=== PATIENT | female | born 1990 | race Caucasian/White ===

== ENCOUNTER → 2018-06-10 11:38 | Outpatient (CLI) | payer MEDICAID, SELFPAY ==
[2018-06-10 11:41] LABS: Microscopic, Urine URINE MICROSCOPIC (MICROSCOPIC)
[2018-06-10 11:53] LABS: Basophils % 0.5 % (0.1-2.0); Eosinophils # 0.1 K/mm3 (0.0-0.4); Eosinophils % 1.7 % (0.1-12.0); Hematocrit 42.4 % (37.0-47.0); Lymphocytes % 38.5 % (10-50); Mean Corpuscular HGB Conc 35.3 g/dL (31.8-35.4); Mean Corpuscular Hemoglobin 31.8 pg (27.0-31.2); Mean Corpuscular Volume 90.2 fl (81-99); Mean Platelet Volume 7.9 fl (7.4-10.4); Monocytes # 0.5 K/mm3 (0.1-1.0); Monocytes % 6.8 % (1.7-9.3); Neutrophils # 4.1 K/mm3 (1.8-7.8); Neutrophils % 52.5 % (37.0-80.0); Platelet Count 274 K/mm3 (142-424); Red Cell Distribution Width 12.7 % (11.5-17.5); White Blood Count 7.8 K/mm3 (4.8-10.8)
[2018-06-10 11:58] LABS: Appearance,Urine CLEAR (Clear); Bilirubin,Urine Negative (Negative); Blood, Urine 3+ (Negative); Color,Urine YELLOW (Yellow); Glucose,Urine (UA) Negative (Negative); Ketones,Urine Negative (Negative); Leukocyte Esterase,Urine Negative (Negative); Nitrate,Urine Negative (Negative); Protein,Urine Negative (Negative); Specific Gravity, Urine 1.025 (1.005-1.030); Urobilinogen,Urine 0.2 EU/dl (0.2)
[2018-06-10 12:16] LABS: Bacteria,Urine 1+ /lpf; RBC,Urine 50-100 #/hpf (0-3)
[2018-06-10 13:14] LABS: Alanine Aminotransferase 24 U/L (12-78); Albumin Level 4.2 gm/dL (3.4-5.0); Albumin/Globulin Ratio 1.2 (1.1-1.8); Alkaline Phosphatase 58 U/L (46-116); Anion Gap 14.4 mEq/L (5-15); Aspartate Amino Transferase 17 U/L (15-37); Bilirubin,Total 0.5 mg/dL (0.2-1.0); Blood Urea Nitrogen 10 mg/dL (7-18); Calcium 9.6 mg/dL (8.5-10.1); Carbon Dioxide 28 mmol/L (21.0-32.0); Chloride 101 mmol/L (98-107); Creatinine,Serum 0.74 mg/dL (0.55-1.02); Estimated Glomerular Filt Rate 93 ml/min (>60); GFR (African American) 112 ML/MIN (>60); Globulin 3.6 gm/dl (1.3-3.2); Glucose 82 mg/dL (74-106); Potassium 4.4 mmoL/L (3.5-5.1); Sodium 139 mmol/L (136-145); Total Protein,Serum 7.8 gm/dL (6.4-8.2)
[2018-06-10 14:06] LABS: HCG Qualitative, Serum Negative (Negative)
== END ==
PROVIDERS: Visit Provider Obstetrics & Gynecology
DX: Z01.818 Encounter for other preprocedural examination (principal); N80.9 Endometriosis, unspecified; N97.9 Female infertility, unspecified
CPT/HCPCS: 36415; 80053; 81001; 84703; 85025

== ENCOUNTER → 2018-07-08 11:35 | Outpatient (CLI) | payer MEDICAID, SELFPAY ==
[2018-07-08 11:38] LABS: Microscopic, Urine URINE MICROSCOPIC (MICROSCOPIC)
[2018-07-08 12:00] LABS: Basophils % 0.5 % (0.1-2.0); Eosinophils # 0.1 K/mm3 (0.0-0.4); Hematocrit 45.9 % (37.0-47.0); Hemoglobin 15.1 g/dL (12.2-16.2); Lymphocytes # 3.3 K/mm3 (0.7-4.5); Lymphocytes % 41.8 % (10-50); Mean Corpuscular HGB Conc 32.8 g/dL (31.8-35.4); Mean Corpuscular Hemoglobin 30.7 pg (27.0-31.2); Mean Corpuscular Volume 93.5 fl (81-99); Mean Platelet Volume 8.1 fl (7.4-10.4); Monocytes # 0.4 K/mm3 (0.1-1.0); Monocytes % 4.9 % (1.7-9.3); Neutrophils # 4.1 K/mm3 (1.8-7.8); Neutrophils % 51.8 % (37.0-80.0); Platelet Count 258 K/mm3 (142-424); Red Blood Count 4.91 M/mm3 (4.20-5.40); Red Cell Distribution Width 12.9 % (11.5-17.5); White Blood Count 7.8 K/mm3 (4.8-10.8)
[2018-07-08 12:13] LABS: Appearance,Urine CLEAR (Clear); Bilirubin,Urine Negative (Negative); Blood, Urine 1+ (Negative); Color,Urine YELLOW (Yellow); Glucose,Urine (UA) Negative (Negative); Ketones,Urine Negative (Negative); Leukocyte Esterase,Urine Negative (Negative); Nitrate,Urine Negative (Negative); Protein,Urine Negative (Negative); Specific Gravity, Urine 1.015 (1.005-1.030); Urobilinogen,Urine 0.2 EU/dl (0.2)
[2018-07-08 13:18] LABS: Bacteria,Urine Trace /lpf; Mucus,Urine 2+ /lpf; WBC,Urine Occasional #/hpf (0-3)
[2018-07-08 13:28] LABS: Alanine Aminotransferase 22 U/L (12-78); Albumin Level 4.2 gm/dL (3.4-5.0); Albumin/Globulin Ratio 1.2 (1.1-1.8); Alkaline Phosphatase 59 U/L (46-116); Anion Gap 11.7 mEq/L (5-15); Aspartate Amino Transferase 9 U/L (15-37); Bilirubin,Total 0.4 mg/dL (0.2-1.0); Blood Urea Nitrogen 9 mg/dL (7-18); Calcium 8.9 mg/dL (8.5-10.1); Carbon Dioxide 29 mmol/L (21.0-32.0); Chloride 103 mmol/L (98-107); Creatinine,Serum 0.67 mg/dL (0.55-1.02); Estimated Glomerular Filt Rate 104 ml/min (>60); GFR (African American) 126 ML/MIN (>60); Globulin 3.5 gm/dl (1.3-3.2); Glucose 90 mg/dL (74-106); Potassium 3.7 mmoL/L (3.5-5.1); Sodium 140 mmol/L (136-145); Total Protein,Serum 7.7 gm/dL (6.4-8.2)
== END ==
PROVIDERS: Visit Provider Obstetrics & Gynecology
DX: Z01.818 Encounter for other preprocedural examination (principal); N80.0 Endometriosis of uterus; N73.1 Chronic parametritis and pelvic cellulitis; N70.11 Chronic salpingitis
CPT/HCPCS: 36415; 80053; 81001; 85025

== ENCOUNTER 2018-07-14 06:19 | Inpatient (IN) | payer MEDICAID, SELFPAY ==
[2018-07-13 08:27] VITALS: BMI 24.3
[2018-07-14] VITALS (27 sets, daily range): BP systolic 106–152; BP diastolic 43–94; PULSE 55–90; RESP 13–24; TEMP 36.3–43; O2SAT 95–100
[2018-07-14 06:32] LABS: Urine Pregnancy, HCG Qual. Negative (Negative)
--- NOTE | 2018-07-14 06:50 | P.PN_ITS ---
[facility] Anesthesia Checklist - Structural Data Admitted From: Home Planned Operative Procedure/s: exp lap Consent for Planned Operative Procedure(s) Verified: Yes - Airway Assessment C-Spine Mobility Assessed: Yes TMJ Mobility Assessed: Yes Dentition: Good Dentition - Neurological Assessment Level of Consciousness: Awake, Alert, Appropriate - Anesthesia Plan Anesthesia Risk discussed: Yes Anesthesia Plan: Verified ASA Class: II Anesthesia Type: General [facility] History I have reviewed the patient's past medical history: Yes Medical History: Reports:: Seizures Denies:: Cancer, Diabetes Mellitus Type 1, Diabetes Mellitus Type 2, Internal Pacemaker, MRSA *Have you ever received a pneumonia vaccine?: No *Have you received a flu vaccine this season?: No Other Medical History: Denies: Blood Transfusion Reaction Other Surgeries: No: Pacemaker Amputation: No Fractures: No - *Social History Educational Level: Completed High School Smoking Status: Current every day smoker Tobacco Type: cigarettes # Packs/Day (cigarettes): 1 Alcohol Intake: never Alcohol Intake Frequency:: other Substance Use Type: denies use *Occupational Status:: employed Housing: house Household Members: significant other *Travel in the last 8 weeks: None - Psychiatric History Expresses thoughts of harming self/others: None Suicide Plan Description: No Plan Family Hx:: Heart Attack 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
--- NOTE | 2018-07-14 08:59 | HMH.OPNOTE ---
Date of procedure: 07/28/18 Pre-op Diagnosis:: 1. Endometriosis. 2. Pelvic adhesions. 3. Bilateral hydrosalpinges. Post-op Diagnosis:: 1. Endometriosis. 2. Extensive pelvic adhesions. 3. Bilateral hydrosalpinges. Procedure performed:: 1. Exploratory laparotomy. 2. Extensive pelvic adhesiolysis. 3. Left salpingectomy. 4. Right tuboplasty. Surgeon:: Marin Henry MD Rn Family Practice(s):: Dr. Mcclendon MANUFACTURING ASSOCIATE:: Shiva Barrios Anesthesia: GETA Estimated blood loss (mL): 100 Operative findings:: 1. Extensive pelvic adhesions. 2. Bilateral hydrosalpinges. Condition: stable Disposition: PACU Specimens:: Left fallopian tube. Complications:: None
--- NOTE | 2018-07-14 09:02 | HMH.OPNOTE ---
Date of procedure: 07/14/18 Pre-op Diagnosis:: 1. Endometriosis. 2. Extensive pelvic adhesions. 3. Bilateral hydrosalpinges. Post-op Diagnosis:: 1. Endometriosis. 2. Extensive pelvic adhesions. 3. Bilateral hydrosalpinges. Procedure performed:: 1. Exploratory laparotomy. 2. Extensive lysis of adhesions. 3. Left salpingectomy. 4. Right tuboplasty. Surgeon:: Marin Henry MD Field Captain(s):: Dr. Mcclendon. BASIN TENDER:: Shiva Barrios Anesthesia: GETA Estimated blood loss (mL): 100 Operative findings:: 1. Extensive pelvic adhesions. 2. Bilateral hydrosalpinges. Operative note:: After the patient was prepped and draped in usual fashion and general anesthesia was administered, a weighted speculum was placed within the posterior fourchette of the vagina, and the anterior lip of the cervix was grasped with a single-tooth tenaculum. The cervix was easily dilated to #20 Hegar dilators, and a HUMI uterine elevator was inserted into the endocervix, and the bulb inflated for easy uterine manipulation during the laparoscopy. A syringe of methylene blue dye was placed at the end of the HUMI. After appropriate regloving, a low Pfannenstiel incision was made across the midline. The fat and fascia was in usual fashion, bleeders being clamped and coagulated along the way. The peritoneum was entered with Metzenbaum scissors, and extended above and below. The bowel was packed away and a self-retaining Delfin retractor with bladder blade was placed. The uterus was of normal size and configuration. Each ovary appeared normal. On the left side, the tube was convoluted and adherent to the ovary and the adherent to the pelvic sidewall. Using a harmonic scalpel and a [place] clamp, the mesosalpinx was crossclamped and cut, thus removing the left tube. There was no undue bleeding, although running unlocked suture of 3-0 Vicryl was placed for hemostasis. Methylene blue dye was then infused and this appeared to fill the proximal portion of the right fallopian tube. Resistance was met. The right tube was also convoluted upon itself, and the fimbria were buried. Using a #11 blade, the distal portion of the tube was open. Chromopertubation was then carried out with minimal flow of dye through the right tube. Considerable letter was made to unblock the tube and straighten it, but the efforts were only partially successful, even with circumcision probing. Consideration was even given to removing the right tube, but this had not been discussed in detail with the patient, and so the decision was made to leave it in situ. The serosa of the tube was oversewn with 3-0 Vicryl for hemostasis. Irrigation was carried out and Carl was sprinkled over the surgical area for further hemostasis. The appendix was retrocecal and was not addressed. The peritoneum was grasped with 3 Janna clamps, and closed with a running semi-lock suture of 0 Vicryl. The muscle was approximated with a running unlocked suture of 0 Vicryl. The fascia was closed with a running locked suture of #1 Vicryl. The subcutaneous fat and Maxwell's fascia were closed with a running unlocked suture of 2-0 Vicryl. The skin was closed with a subcuticular suture of 3-0 Vicryl, and appropriately dressed. The urine was clear in the Irwin catheter. The sponge and needle counts correct. Estimated blood loss was 100 cc. The patient tolerated the procedure well, was taken to PACU in excellent condition. She will be admitted postoperatively. Condition: stable Disposition: PACU Specimens:: Left fallopian tube. Complications:: None.
--- NOTE | 2018-07-14 09:02 | HMH.ANESI ---
[facility] Anesthesia Record Part I Intake, IV Amount: 550 Estimated blood loss (mL): 100 Urine output (mL): 150 Blood Products used (#): none Blood Pressure: 118/59 SaO2: 99 Pulse Rate: 55 Respiratory Rate: 18 Temperature: 97.6 F Patient is:: Drowsy, Stable Stable to PACU at:: 08:56
--- NOTE | 2018-07-14 09:05 | P.PN_ITS ---
[facility] Anesthesia Record Part II Discharge Time: 09:26 Destination: Obstetric Gynecology Dept PACU nurse assessment reviewed?: Yes Patient Condition:: Good Anesthesia Complications:: None Swallowing reflex intact?: Yes Cyanosis?: No
--- NOTE | 2018-07-14 09:10 | P.OP_ITS ---
Date of procedure: 07/14/18 Pre-op Diagnosis:: 1. Endometriosis. 2. Extensive pelvic adhesions. 3. Bilateral hydrosalpinges. Post-op Diagnosis:: 1. Endometriosis. 2. Extensive pelvic adhesions. 3. Bilateral hydrosalpinges. Procedure performed:: 1. Exploratory laparotomy. 2. Extensive lysis of adhesions. 3. Left salpingectomy. 4. Right tuboplasty. Surgeon:: Marin Henry MD Straight Cutter(s):: Dr. Mcclendon. BUILDING ENERGY RETROFIT TECHNICIAN:: Shiva Barrios Anesthesia: GETA Estimated blood loss (mL): 100 Operative findings:: 1. Extensive pelvic adhesions. 2. Bilateral hydrosalpinges. Operative note:: After the patient was prepped and draped in usual fashion and general anesthesia was administered, a weighted speculum was placed within the posterior fourchette of the vagina, and the anterior lip of the cervix was grasped with a single- tooth tenaculum. The cervix was easily dilated to #20 Hegar dilators, and a HUMI uterine elevator was inserted into the endocervix, and the bulb inflated for easy uterine manipulation during the laparoscopy. A syringe of methylene blue dye was placed at the end of the HUMI. After appropriate regloving, a low Pfannenstiel incision was made across the midline. The fat and fascia was in usual fashion, bleeders being clamped and coagulated along the way. The peritoneum was entered with Metzenbaum scissors, and extended above and below. The bowel was packed away and a self-retaining [place] retractor with bladder blade was placed. The uterus was of normal size and configuration. Each ovary appeared normal. On the left side, the tube was convoluted and adherent to the ovary and the adherent to the pelvic sidewall. Using a harmonic scalpel and a [place] clamp, the mesosalpinx was crossclamped and cut, thus removing the left tube. There was no undue bleeding, although running unlocked suture of 3-0 Vicryl was placed for hemostasis. Methylene blue dye was then infused and this appeared to fill the proximal portion of the right fallopian tube. Resistance was met. The right tube was also convoluted upon itself, and the fimbria were buried. Using a #11 blade, the distal portion of the tube was open. Chromopertubation was then carried out with minimal flow of dye through the right tube. Considerable letter was made to unblock the tube and straighten it, but the efforts were only partially successful, even with circumcision probing. Consideration was even given to removing the right tube, but this had not been discussed in detail with the patient, and so the decision was made to leave it in situ. The serosa of the tube was oversewn with 3-0 Vicryl for hemostasis. Irrigation was carried out and Carl was sprinkled over the surg ical area for further hemostasis. The appendix was retrocecal and was not addressed. The peritoneum was grasped with 3 Janna clamps, and closed with a running semi-lock suture of 0 Vicryl. The muscle was approximated with a running unlocked suture of 0 Vicryl. The fascia was closed with a running locked suture of #1 Vicryl. The subcutaneous fat and Maxwell's fascia were closed with a running unlocked suture of 2-0 Vicryl. The skin was closed with a subcuticular suture of 3-0 Vicryl, and appropriately dressed. The urine was clear in the Irwin catheter. The sponge and needle counts correct. Estimated blood loss was 100 cc. The patient tolerated the procedure well, was taken to PACU in excellent condition. She will be admitted postoperatively. Condition: stable Disposition: PACU Specimens:: Left fallopian tube. Complications:: None.
[2018-07-14 09:15] LABS: Microscopic,Cath URINE MICROSCOPIC (MICROSCOPIC)
[2018-07-14 09:17] LABS: Appearance,Urine/Cath CLEAR (Clear); Bilirubin,Cath Negative (Negative); Blood, Urine/Cath 1+ (Negative); Color,Urine/Cath YELLOW (Yellow); Glucose,Urine/Cath (UA) Negative (Negative); Ketones,Urine/Cath Negative (Negative); Leukocyte Esterase,Cath Negative (Negative); Nitrate,Cath Negative (Negative); Protein,Urine/Cath Negative (Negative); Specific Gravity, Urine/Cath <= 1.005 (1.005-1.030); Urobilinogen,Cath 0.2 EU/dl (0.2)
--- NOTE | 2018-07-14 09:22 | PC.NURSE ---
exp: 02/29/2020 lot: [id number]
[2018-07-14 09:23] LABS: Bacteria,Urine/Cath TRACE /lpf; RBC,Urine/Cath Occasional # /hpf (0-3)
[2018-07-14 10:01] LABS: Hematocrit 42.7 % (37.0-47.0); Hemoglobin 14.7 g/dL (12.2-16.2)
--- NOTE | 2018-07-14 10:25 | PC.NURSE ---
Pt to department at approximately 1000. Pt groaning and complaining that she is cold at this time, 2 warm blankets applied to pt and oral temp of 97.5 noted. Pt dozing off and on while RN at bedside. IPCS reapplied, VSS, bed locked and in it's lowest position with side rails up x2, call light within reach. F/C patent and draining clear, yellow urine at bedside. Visitor present. Pt sleeping soundly with resps even and unlabored as RN left the room at 1015.
--- NOTE | 2018-07-14 10:29 | HMH.PHAVTE ---
[facility] Pharmacy VTE Monitoring - Patient Demographics Admission date: 07/14/18 Report Date: 07/14/18 Time: 10:29 Allergies/Adverse Reactions: Patient Allergies Penicillins [PENICILLINS] Allergy (Severe, Verified 07/13/18 08:19) T-[id number]-[id number]/THROAT amoxicillin [From AMOXIL] Allergy (Intermediate, Verified 07/13/18 08:19) I-RASH acetaminophen [From TYLENOL-CODEINE #3] Allergy (Mild, Verified 07/13/18 08:19) VOMITS codeine [From TYLENOL-CODEINE #3] Allergy (Mild, Verified 07/13/18 08:19) VOMITS cephalexin [From KEFLEX] Allergy (Unknown, Verified 07/13/18 08:19) I-HIVES Height: 1.6 m Weight: 62.142 kg - VTE Risk Labs: VTE Related Lab Results Hgb 14.7 g/dL (12.2-16.2) 07/14/18 09:50 Hct 42.7 % (37.0-47.0) 07/14/18 09:50 - Prophylaxis VTE Prophylaxis Ordered?: Yes Types of VTE Prophylaxis: IPCS Thigh High Location of Applied Device: Bilateral Lower Extremeties - VTE Diagnosis Confirmed Treatment or plan recommended: Continue Current Treatment
--- NOTE | 2018-07-14 10:32 | HMH.PHAINT ---
MEDICATION RECONCILIATION COMPLETED ON PATIENT USING EXTERNAL FILL HISTORY FROM PHARMACY AND LIST FROM PHYSICIAN'S OFFICE. -SHEELA DAVISD
--- NOTE | 2018-07-14 13:32 | PC.NURSE ---
Report given to Pierce Hayes RN.
--- NOTE | 2018-07-14 13:39 | HMH.ACPN2 ---
Internal Medicine - PN: Subj *Date: 07/14/18 *Time: 13:39 Interval history: This is day of surgery. The patient is afebrile. Vital signs stable. Wound clean. Abdomen soft. Urine output good. She is anxious to have her Irwin removed and I will do so now. Surgery has been explained to the patient. Exam Vital signs and Labs for Last 24 Hours: Temp Pulse Resp BP Pulse Ox 98.1 F 62 16 113/77 97 07/14/18 13:00 07/14/18 13:00 07/14/18 13:00 07/14/18 13:00 07/14/18 13:00 Laboratory Results - last 24 hr 07/14/18 06:20: Urine HCG, Qual Negative 07/14/18 07:45: Urine Color Yellow, Urine Appearance Clear, Urine pH 7.0, Ur Specific [place] <= 1.005, Urine Protein Negative, Urine Glucose (UA) Negative, Urine Ketones Negative, Urine Blood 1+, Urine Nitrate Negative, Urine Bilirubin Negative, Urine Urobilinogen 0.2, Ur Leukocyte Esterase Negative, Urine RBC Occasional, Urine WBC None, Ur Squamous Epith Cells 3-5, Urine Bacteria Trace 07/14/18 09:50: Hgb 14.7, Hct 42.7 I & O for Last 24 hours: Intake & Output 07/12/18 07/13/18 07/14/18 07/15/18 11:59 11:59 11:59 11:59 Intake Total 550 / 550 Balance 550 / 550 Weight 137 lb
--- NOTE | 2018-07-14 14:27 | SUR.PHASEI ---
Dilaudid given on arrival to PACU for pain observed 10 of 10.
--- NOTE | 2018-07-14 15:45 | PC.NURSE ---
Indwelling catheter removed at this time. Urine blue/green in color r/t dye that was used during procedure.
--- NOTE | 2018-07-14 15:48 | PC.NURSE ---
Indwelling catheter removed at this time. Urine clear and green/blue in color r/t dye inserted during procedure. Pt ambulated to the BR at this time and sheets were changed. Medicated for pain 5/10 on numeral scale according to EMAR. Sitting on the side of the bed at this time. Denies any further needs at this time.
--- NOTE | 2018-07-14 18:16 | PC.NURSE ---
Pt medicated per EMAR r/t to pain rated 7/10 on verbal scale. Heating blanket applied to pt at request. Ambulated to the BR and back at this time. Pt was able to void at this time. Education on the IS at this time. Pt returned proper demonstration of use of IS at this time. Denies any further needs at this time.
--- NOTE | 2018-07-14 18:20 | PC.NURSE ---
Blood tinged urine noted from pt. Scant bleeding on pad. Pt was straining to use BR will reassess her bleeding in 30 min.
--- NOTE | 2018-07-14 18:58 | PC.NURSE ---
Bleeding in scant on sherry pad. Denies any further needs.
--- NOTE | 2018-07-14 19:06 | PC.NURSE ---
Report given to Yasmin Nuñez RN.
--- NOTE | 2018-07-14 23:21 | PC.NURSE ---
pt ambulating on unit at this time. no complaints voiced no distress noted will continue to monitor at this time
[2018-07-15] VITALS (8 sets, daily range): BP systolic 110–155; BP diastolic 70–95; PULSE 74–85; RESP 18; TEMP 36.6–36.9; O2SAT 96–100
--- NOTE | 2018-07-15 03:50 | PC.NURSE ---
pt has rested fairly well throughout shift. medicated for pain see emar. lungs remain clear heart rate regular, bs x 4 quads, pt has ambulated without difficulty, abdominal dresing to low transverse incision has small amount of serosangious drainage not changed since beginning of shift, scant amount of vaginal bleeding, urine remains a blueish green urine, good urinary output with total of 1600 ml total. no distress noted at this time will continue to monitor
--- NOTE | 2018-07-15 06:41 | PC.NURSE ---
pt up to shower at this time. ambulating in room without difficulty no distress noted at this time
[2018-07-15 07:07] LABS: Hematocrit 38.2 % (37.0-47.0)
--- NOTE | 2018-07-15 07:10 | PC.NURSE ---
Dr. Henry here to assess pt.
--- NOTE | 2018-07-15 07:15 | PC.NURSE ---
Pt taken a shower this morning. Dressing removed, incision cleaned, and new dressing C/D/I. Assessment performed at this time. Pt advanced to a soft diet and rates pain 7/10 on verbal scale. Denies any further needs at this time. Will continue to observe.
--- NOTE | 2018-07-15 07:20 | P.PN_ITS ---
Internal Medicine - PN: Subj *Date: 07/15/18 *Time: 07:20 Interval history: This is postop day #1. The patient is afebrile. Vital signs stable. Wound clean. Abdomen soft. Urine output good. Hemoglobin 14.7 g. She is ambulating and has good bowel sounds. I am going to advance her diet at this time. Exam Vital signs and Labs for Last 24 Hours: Temp Pulse Resp BP Pulse Ox 98.2 F 77 18 115/81 96 07/15/18 03:28 07/15/18 03:28 07/15/18 03:28 07/15/18 03:28 07/15/18 00:02 Laboratory Results - last 24 hr 07/14/18 07:45: Urine Color Yellow, Urine Appearance Clear, Urine pH 7.0, Ur Specific [place] <= 1.005, Urine Protein Negative, Urine Glucose (UA) Negative, Urine Ketones Negative, Urine Blood 1+, Urine Nitrate Negative, Urine Bilirubin Negative, Urine Urobilinogen 0.2, Ur Leukocyte Esterase Negative, Urine RBC Occasional, Urine WBC None, Ur Squamous Epith Cells 3-5, Urine Bacteria Trace 07/14/18 09:50: Hgb 14.7, Hct 42.7 I & O for Last 24 hours: Intake & Output 07/12/18 07/13/18 07/14/18 07/15/18 11:59 11:59 11:59 11:59 Intake Total 550 / 550 Output Total 2400 / 2400 Balance 550 / 550 -2400 / -2400 Weight 137 lb
[2018-07-15 07:36] LABS: Hemoglobin 13.2 g/dL (12.2-16.2)
--- NOTE | 2018-07-15 10:45 | PC.NURSE ---
Called Dr. Henry in regards to pain medication not being affective. New orders obtained at this time.
--- NOTE | 2018-07-15 12:00 | PC.NURSE ---
VS obtained at this time. Pt c/o gas pain. Incision dressing C/D/I. Denies any further needs at this time will continue to observe.
--- NOTE | 2018-07-15 16:24 | PC.NURSE ---
Reassessed at this time. VS stable. Denies any further needs. Call light is within reach and will continue to observe.
--- NOTE | 2018-07-15 18:46 | INFXCTL.NOTE ---
Report given to Roselia Jarrell RN.
[2018-07-16 00:20] VITALS: BP 149/85; PULSE 102; TEMP 36.8
[2018-07-16 05:20] VITALS: BP 114/75; PULSE 75; RESP 18; TEMP 36.8
[2018-07-16 08:00] VITALS: BP 134/97; PULSE 86; RESP 18; O2SAT 96
--- NOTE | 2018-07-16 08:46 | HMH.ACPN2 ---
Internal Medicine - PN: Subj *Date: 07/16/18 *Time: 08:46 Interval history: This is day #2. The patient is afebrile. Vital signs stable. Lochia normal. Perineum healing well. Uterine fundus has involuted well. Hemoglobin 13.7 g. She will be discharged today. Exam Vital signs and Labs for Last 24 Hours: Temp Pulse Resp BP Pulse Ox 98.3 F 86 18 134/97 H 96 07/16/18 05:20 07/16/18 08:00 07/16/18 08:00 07/16/18 08:00 07/16/18 08:00 I & O for Last 24 hours: Intake & Output 07/13/18 07/14/18 07/15/18 07/16/18 11:59 11:59 11:59 11:59 Intake Total 550 / 550 480 / 480 Output Total 2750 / 2750 600 / 600 Balance 550 / 550 -2750 / -2750 -120 / -120 Weight 137 lb
--- NOTE | 2018-07-16 08:48 | HMH.DCSUM ---
General - General Admission date:: 07/14/18 Discharge date: 07/16/18 (This 22-year-old 1, now para 1, Ab0 white female was admitted for induction at 39-3/7 weeks. She delivered vaginally, without complications. The baby was an 7/8, 7 pound 5 ounce, 20 inch female , born on 07/14/2020 at 1908. Baby is breast-feeding, and is done well. , the patient has done well. She is eating and ambulating, and has had a bowel movement. Her perineum is healing well. Her lochia is normal. Her uterine fundus is involuting well. Her blood type is O+. Her rubella titer is nonimmune, and she will be vaccinated prior to discharge. She is not a smoker. Her blood type is O+. She is given appropriate instructions as to diet, exercise, and perineal care, and she is to return to Dr. Mcclendon's office in 2 weeks for follow-up. ) Objective Vital signs: Temp Pulse Resp BP Pulse Ox 98.3 F 86 18 134/97 H 96 07/16/18 05:20 07/16/18 08:00 07/16/18 08:00 07/16/18 08:00 07/16/18 08:00 Discharge Plan - Patient Discharge Instructions - Follow up Plan Home Medications: Home Medications Medication Instructions Recorded Confirmed Type promethazine 25 mg tablet 25 mg PO Q6H PRN #20 tab 05/30/18 07/13/18 Rx Hydrocodone/Acetaminophen 1 each PO Q4-6H PRN 06/13/18 07/13/18 History [Hydrocodone-Acetamin 5-325 mg] Prescriptions/Medication Reconciliation: No Action promethazine 25 mg tablet 25 mg PO Q6H PRN #20 tab PRN Reason: nausea and vomiting Hydrocodone/Acetaminophen [Hydrocodone-Acetamin 5-325 mg] 1 each PO Q4-6H PRN PRN Reason: PAIN
--- NOTE | 2018-07-16 09:19 | HMH.DCSUM ---
General - General Admission date:: 07/14/18 Discharge date: 07/16/18 (This 27-year-old white female was admitted for definitive treatment of bilateral hydrosalpinges and extensive pelvic adhesions secondary to endometriosis. She is desirous of a future . On the date of admission, she was taken to the operating room, where, under general anesthesia, she underwent an exploratory laparotomy with extensive lysis of adhesions, left salpingectomy, and the right tuboplasty. The right tube was extremely convoluted and the fimbria were not completely opened. Chromopertubation was carried out with problematic results. Her appendix remains in situ. Postoperatively, the patient is doing well. She is eating and ambulating, and passing flatus. Her hemoglobin is 13.2 g. She is discharged home on the second postoperative day on Lortab 5/325 (#30), 1 p.o. every 6 hours as needed pain. She is to use Tylenol and Motrin intermittently as needed. She is given appropriate instructions as to diet, exercise, and wound care, and she is to return to the office in 2 weeks for follow-up.) Objective Vital signs: Temp Pulse Resp BP Pulse Ox 98.3 F 86 18 134/97 H 96 07/16/18 05:20 07/16/18 08:00 07/16/18 08:00 07/16/18 08:00 07/16/18 08:00 Discharge Plan - Patient Discharge Instructions DIET: advance to your usual diet - Follow up Plan Disposition: Home, Self-Care Prescriptions/Medication Reconciliation: Discontinued promethazine 25 mg tablet 25 mg PO Q6H PRN #20 tab PRN Reason: nausea and vomiting Hydrocodone/Acetaminophen [Hydrocodone-Acetamin 5-325 mg] 1 each PO Q4-6H PRN PRN Reason: PAIN
--- NOTE | 2018-07-16 09:57 | PC.NURSE ---
PATIENT A&O X4, LUNGS CLEAR, PULSES EQUAL, ROOF TRUSS DETAILER EQUAL. INCISION ON LOWER ABDOMEN, DRESSING CLEAN AND DRY. ATE 25% OF BREAKFAST, DR. HAN IN ROOM AND REMOVED DRESSING, BRUISING NOTED ALONG UPPER AND BOTTOM SECTION OF INCISION. PATIENT AMBULATED WELL IN HALLWAY AND TOOK A SHOWER, IV REMOVED, NO EDEMA, REDNESS, OR LEAKING AT SITE. PATIENT TOLERATED WELL. RN PROVIDED D/C EDUCATION AND EDUCATION ON PAIN MEDICATION PRESCRIBED, PATIENT VERBALIZED AN UNDERSTANDING, NO QUESTIONS ASKED. NO NEW NEEDS OR CONCERNS UPON D/C.
== END 2018-07-16 09:51 | disposition home or self-care (01) | DRG 743 ==
LOC: OB 10:24 → 2ND 11:02
PROVIDERS: Admitting Provider Obstetrics & Gynecology; Visit Provider Obstetrics & Gynecology
PROC: 0WJN0ZZ Inspection of Female Perineum, Open Approach (ICD-10-PCS; CPT 49000; principal; 2018-07-14 07:30)
DX: N80.3 Endometriosis of pelvic peritoneum (principal)
CPT/HCPCS: 49000; 58700; 36415; 81001; 81025; 85014; 85018; 96372; 96374; J1956; J2405; J2710